=== PATIENT | female | born 1935 | race Caucasian/White ===

== ENCOUNTER 2021-07-27 12:24 | Inpatient (IN) | payer OTHER, MEDICAID, SELFPAY ==
[~2021-07-27] VITALS: Ht 165.1 cm; Wt 69.9 kg
[2021-07-27 13:27] VITALS: BP 118/50
--- NOTE | 2021-07-27 13:30 | NUR ---
PT BIBA TAKEN TO ER BED 9.
--- NOTE | 2021-07-27 13:39 | NUR ---
86 Y/O FEMALE BIBA FROM [facility] C/O BILATERAL LEG PAIN. PER EMT DR IN [facility] WANTS AN EVALUATION TO RULE OUT CELLULITIS. PT IS A&OX0, GCS 14. REDNESS NOTED TO BOTH INNER THIGHS. PMH: RIGHT CVA, HTN, HLD, R LEG DVT, BULLOUS PEMPHIGOID( SEE CHART FOR EXTENSIVE) NKA
--- NOTE | 2021-07-27 14:12 | NUR ---
DR. WAKEFIELD AT PT BEDSIDE FOR FURTHER EVALUATION.
[2021-07-27 14:38] LABS: BASOPHILS % (AUTO) 0.4 % (0.0-2.0); EOSINOPHILS # (AUTO) 0.1 K/uL (0-0.4); EOSINOPHILS % (AUTO) 0.8 % (0.0-4.0); HEMATOCRIT 45.2 % (36-48); LYMPHOCYTES # (AUTO) 1.5 K/uL (2.5-16.5); MEAN CORPUSCULAR HEMOGLOBIN 30 pg (27-31); MEAN CORPUSCULAR HGB CONC 33 g/dL (33-37); MEAN CORPUSCULAR VOLUME 89.8 fL (80-94); MONOCYTES # (AUTO) 0.2 K/uL (0.8-1.0); NEUTROPHILS # (AUTO) 10.5 K/uL (1.8-7.7); NEUTROPHILS % (AUTO) 84.8 % (42.2-75.2); PLATELET COUNT (AUTO) 373 K/uL (140-450); RED BLOOD CELL COUNT(AUTO) 5.03 MIL/uL (4.20-5.40); RED CELL DISTRIBUTION WIDTH 14.8 % (11.6-13.7); WHITE BLOOD COUNT (AUTO) 12.4 K/uL (4.8-10.8)
[2021-07-27 15:00] LABS: ALBUMIN 3.9 g/dL (3.4-5.0); ANION GAP 11.9 (8-16); ASPARTATE AMINOTRANSFERASE 23 U/L (15-37); CARBON DIOXIDE 28.2 mmol/L (21-32); CHLORIDE 107 mmol/L (98-107); CREATININE 0.7 mg/dL (0.6-1.3); GLUCOSE 127 mg/dL (74-106); POTASSIUM 4.1 mmol/L (3.5-5.1); SODIUM SERUM 143 mmol/L (136-145); TOTAL BILIRUBIN 0.4 mg/dL (0.0-1.0); UREA NITROGEN, BLOOD 17 mg/dL (7-18)
[2021-07-27] MEDS ORDERED: KETOROLAC 30 MG/ML VIAL IVP ONE (15:00)
[2021-07-27] MEDS ORDERED: diphenhydrAMINE 50 MG/ML VIAL IVP ONE (15:00)
--- NOTE | 2021-07-27 15:30 | NUR ---
PT AWAKE, ALERT, VSS, WILL CONTINUE TO MONITOR.
[2021-07-27] MEDS ORDERED: ceFAZolin 1,000 MG VIAL ONE (16:04)
[2021-07-27 16:40] LABS: APPEARANCE,URINE CLEAR (CLEAR); BILIRUBIN,URINE NEGATIVE (NEGATIVE); BLOOD, URINE TRACE-I (NEGATIVE); LEUKOCYTE ESTERASE ,URINE NEGATIVE (NEGATIVE); NITRITE, URINE NEGATIVE (NEGATIVE); PH,URINE 6.5 (5.0-9.0); UGLUCOSE NEGATIVE (NEGATIVE)
[2021-07-27 16:50] LABS: COLOR,URINE STRAW (YELLOW)
[2021-07-27 16:51] LABS: RBC,URINE NONE SEEN /HPF (0-5); WBC,URINE NONE SEEN /HPF (0-5)
--- NOTE | 2021-07-27 17:27 | NUR ---
PT SLEEPING, VISIBLE EQUAL RISE AND FALL OF CHEST, VSS, WILL CONTINUE TO MONITOR.
[2021-07-27] MEDS: NACL 0.9% 1,000 ML IV SCH (18:50)
[2021-07-27] MEDS ORDERED: PRED10TA5 PO (19:05)
[2021-07-27] MEDS ORDERED: AMLO10TA PO (19:05)
[2021-07-27] MEDS ORDERED: ATOR40TA PO (19:05)
[2021-07-27] MEDS ORDERED: CRAN400C2 PO (19:05)
[2021-07-27] MEDS ORDERED: DOCU-299 PO (19:05)
[2021-07-27] MEDS ORDERED: LACT-103 PO (19:05)
[2021-07-27] MEDS ORDERED: FURO-572 PO (19:05)
[2021-07-27] MEDS ORDERED: RIVA20TA PO (19:05)
--- NOTE | 2021-07-27 19:14 | NUR ---
GAVE REPORT TO JAKE MIR. TRANSFER OF CARE AT THIS TIME.
--- NOTE | 2021-07-27 19:15 | NUR ---
RN ASSUMED CARE OF PT.
--- NOTE | 2021-07-27 19:20 | NUR ---
RN TO PT ROOM. PT LYING IN BED WITH EYES OPEN. AOX3. DENIES ANY NEEDS AT THIS TIME, WILL CONTINUE TO MONITOR PT.
[2021-07-27] MEDS ORDERED: cefTRIAXone 1,000 MG VIAL ONE (20:19)
--- NOTE | 2021-07-27 20:37 | NUR ---
RN TO PT ROOM TO MEDICATE PT PER MD ORDERS. PT VERY COMBATIVE TOWARDS RN, HITTING RN WHEN RN TRIES TO MEDICATE PT. PT CALLS IN HELP, JAKE AU TO TALK TO PT. PT COMBATIVE TOWARDS JAKE AU. PT SCREAMING INCOMPREHENSIBLE WORDS. RN, ANGELY RN, OR EMT UNABLE TO COMPREHEND WHAT PT IS SAYING. MD NOTIFIED.
--- NOTE | 2021-07-27 21:50 | NUR ---
RN SPOKE TO DAUGHTER [phone] ABOUT MEDICAL PLAN FOR PT. DAUGHTER ASKED RN TO CALL HER BACK WHEN PT IS AWAKE.
--- NOTE | 2021-07-27 22:23 | NUR ---
DAUGHTER AT BEDSIDE
--- NOTE | 2021-07-27 23:00 | NUR ---
RN TO BEDSIDE. PT SELF DC IV. RN UNSUCCESSFUL AT REATTEMPT TO INSERT IV ACCESS. EVANS AU TO BEDSIDE TO INSERT PERIPHERAL IV.
--- NOTE | 2021-07-27 23:22 | NUR ---
EVANS AU UNSUCCESSFUL WITH IV START. NOTIFIED.
--- NOTE | 2021-07-28 01:20 | NUR ---
RN TO PT ROOM. PT LYING IN BED WITH EYES CLOSED, APPEARS TO BE ASLEEP. RN COMPLAINING OF PAIN AND ITCHING. RN NOTIFIED MD OF PT COMPLAINTS. NO NEW ORDERS RECIEVED AT THIS TIME.
[2021-07-28] MEDS: NACL 0.9% 1,000 ML IV SCH ×3 (01:34→16:38)
--- NOTE | 2021-07-28 03:30 | NUR ---
RN TO PT ROOM. PT LYING IN BED WITH EYES CLOSED. APPEARS TO BE ASLEEP. EQUAL RISE AND FALL OF CHEST. NO ACUTE DISTRESS AT THIS TIME. WILL CONTINUE TO MONITOR PT.
--- NOTE | 2021-07-28 04:36 | NUR ---
RN TO PT ROOM. RN AND EMT PROVIDED INCONTINENCE CARE. PT URINE. CLEAN LINENS PROVIDED. WARM BLANKETS PROVIDED FOR COMFORT. RN AND EMT REPOSITIONED PT FOR COMFORT. PT CRYING DUE TO RASH IRRITATING AND PAIN. RN ALERTED MD. NO NEW ORDERS RECIEVED AT THIS TIME. WILL CONTINUE TO MONITOR PT.
[2021-07-28] MEDS ORDERED: diphenhydrAMINE 50 MG/ML VIAL IVP ONE (04:55)
--- NOTE | 2021-07-28 05:02 | NUR ---
PT MEDICATED PER MD ORDERS. PLEASE SEE EMAR.
--- NOTE | 2021-07-28 05:49 | NUR ---
PT LYING IN BED WITH EYES CLOSED, APPEARS TO BE SLEEPING AND RELAXED. EQUAL RISE AND FALL OF THE CHEST. NO ACUTE DISTRESS NOTED AT THIS TIME. WILL CONTINUE TO MONITOR PT.
--- NOTE | 2021-07-28 07:11 | NUR ---
REPORT GIVEN TO JAKE SAMUEL TO ASSUME CARE OF PT.
--- NOTE | 2021-07-28 07:11 | NUR ---
REPORT RECEIVED FROM ADEOLA JOSEPH FOR CONTINUITY OF CARE. PT AWAKE, A&OX0. ON ROOM AIR. IV SITE LT AC 20G, INTACT, PATENT, GOOD BLOOD RETURN, SALINE LOCKED. SKIN INTACT, WARM AND DRY. SAFETY PRECAUTIONS IN PLACE.
--- NOTE | 2021-07-28 07:18 | NUR ---
LAB AT BEDSIDE
[2021-07-28 07:54] LABS: BASOPHILS # (AUTO) 0.1 K/uL (0.00-0.22); BASOPHILS % (AUTO) 0.6 % (0.0-2.0); EOSINOPHILS # (AUTO) 0.8 K/uL (0-0.4); EOSINOPHILS % (AUTO) 4.7 % (0.0-4.0); HEMATOCRIT 45.7 % (36-48); HEMOGLOBIN 15.2 g/dL (12.0-16.0); LYMPHOCYTES # (AUTO) 5.1 K/uL (2.5-16.5); LYMPHOCYTES % (AUTO) 28.6 % (20.5-51.1); MEAN CORPUSCULAR HEMOGLOBIN 30 pg (27-31); MEAN CORPUSCULAR HGB CONC 33 g/dL (33-37); MEAN CORPUSCULAR VOLUME 90.7 fL (80-94); MONOCYTES # (AUTO) 1.3 K/uL (0.8-1.0); MONOCYTES % (AUTO) 7.2 % (1.7-9.3); NEUTROPHILS # (AUTO) 10.6 K/uL (1.8-7.7); NEUTROPHILS % (AUTO) 58.9 % (42.2-75.2); PLATELET COUNT (AUTO) 334 K/uL (140-450); RED BLOOD CELL COUNT(AUTO) 5.04 MIL/uL (4.20-5.40); RED CELL DISTRIBUTION WIDTH 14.6 % (11.6-13.7)
[2021-07-28 08:05] LABS: ANION GAP 15.4 (8-16); CARBON DIOXIDE 24.2 mmol/L (21-32); CHLORIDE 109 mmol/L (98-107); CREATININE 0.7 mg/dL (0.6-1.3); GLUCOSE 96 mg/dL (74-106); POTASSIUM 3.6 mmol/L (3.5-5.1); SODIUM SERUM 145 mmol/L (136-145); UREA NITROGEN, BLOOD 13 mg/dL (7-18)
[2021-07-28] MEDS ORDERED: ZOLPIDEM 5 MG TAB PO PRN (09:10)
[2021-07-28] MEDS ORDERED: ONDANSETRON 4 MG/2 ML VIAL IM/IVP PRN (09:10)
[2021-07-28] MEDS ORDERED: MORPHINE SULFATE 2 MG/ML SYR IVP PRN (09:10)
[2021-07-28] MEDS ORDERED: MAG SULF 2000 MG/WATER PREMIX 50 ML IV PRN (09:10)
[2021-07-28] MEDS ORDERED: POTASSIUM CHLORIDE 10 MEQ TABER PO PRN (09:10)
[2021-07-28] MEDS ORDERED: RIVAROXABAN 10 MG TAB PO PRN (09:10)
[2021-07-28] MEDS ORDERED: DOCUSATE SODIUM 100 MG GELCAP PO PRN ×2 (09:10)
[2021-07-28] MEDS ORDERED: ACETAMINOPHEN 325 MG TAB PO PRN (09:10)
--- NOTE | 2021-07-28 09:39 | NUR ---
PT'S DAUGTHER AT BEDSIDE
[2021-07-28] MEDS: LORazepam 2 MG/ML VIAL IM/IVP PRN ×3 (09:57→22:02)
[2021-07-28 10:02] LABS: PROTHROMBIN TIME 10.3 secs (10.8-13.4)
--- NOTE | 2021-07-28 10:04 | NUR ---
ULTRASOUND AT BEDSIDE
[2021-07-28 10:09] LABS: CHOL/HDL RATIO 2.4 (1-4.5); THYROID STIMULATING HORMONE 6.1 uIU/mL (0.34-3.74)
--- NOTE | 2021-07-28 10:25 | NUR ---
PATIENT HAS BEEN SCREENED AND CATEGORIZED MODERATE NUTRITION RISK. PATIENT WILL BE SEEN WITHIN 3-5 DAYS OF ADMISSION. 07/28/21 08/01/[address]
[2021-07-28] MEDS: HYDROcodone/APAP 5/325 MG 1 TAB TAB PO PRN (10:42)
--- NOTE | 2021-07-28 12:06 | NUR ---
DR PANIAGUA AT BEDSIDE EXAMINING PT
--- NOTE | 2021-07-28 13:16 | NUR ---
CALLED [facility], STATED THEY DO NOT HAVE COPY OF ECHO. CALLED PT[facility]S [facility]. STATED ECHO DONE THIS YEAR AND DOES NOT REMEMBER IF IT WAS DONE AT [place] OR [place]
--- NOTE | 2021-07-28 15:30 | NUR ---
PT ATTEMPTING TO GET OUT OF BED AND RESTLESS. PT REDIRECTED. UNABLE TO COMPREHEND. PT A&OX0. ATIVAN PRN GIVEN.
--- NOTE | 2021-07-28 16:20 | NUR ---
RECEIVED CALL FROM PT[facility]S [facility]. UPDATED ON PT STATUS. ALL QUESTIONS AND CONCERNS ANSWERED AT THIS TIME.
--- NOTE | 2021-07-28 17:20 | NUR ---
ULTRASOUND AT BEDSIDE
--- NOTE | 2021-07-28 19:15 | NUR ---
RECIEVED REPORT FROM JAKE SAMUEL TO ASSUME CARE OF PT.
--- NOTE | 2021-07-28 19:20 | NUR ---
PT LYING IN BED WITH EYES CLOSED, APPEARS TO BE ASLEEP. PT EASILY ARROUSABLE, RN AND EMT REPOSITIONED PT FOR COMFORT. ALL VITAL SIGNS ARE STABLE AT THIS TIME. EQUAL RISE AND FALL OF THE CHEST. NO ACUTE DISTRESS NOTED. WILL CONTINUE TO MONITOR PT.
--- NOTE | 2021-07-28 19:22 | NUR ---
Pt report given to ADEOLA JOSEPH. Transfer of care at this time.
--- NOTE | 2021-07-28 20:00 | NUR ---
Soft wrist Resraints in place per MD orders with quick-release ties to bed frame. Pt under observation. Distal circulation intact, pt provided opportunity to perform ROM exercises, pt denies discomfort. All safety measures checked per facility protocol.
--- NOTE | 2021-07-28 21:05 | NUR ---
Patient will be admitted to care of [facility]. Admited to [facility]. Will go to room 110A. Belongings list completed. Report to JAKE MERIDA.
--- NOTE | 2021-07-28 21:15 | NUR ---
PT TRANSPORTED TO FLOOR VIA GURNEY BY [facility]. VS ARE STABLE AT TRANSFER. NO ACUTE DISTRESS NOTED.
--- NOTE | 2021-07-28 21:15 | NUR ---
REPORT CALLED TO JAKE MERIDA. PT TO ROOM 110A, [facility].
[2021-07-28] MEDS: ATORVASTATIN 20 MG TAB PO SCH (21:53)
[2021-07-28] MEDS: RIVAROXABAN 10 MG TAB PO SCH (21:53)
[2021-07-28 22:30] VITALS: BP 127/75
--- NOTE | 2021-07-28 22:30 | NUR ---
ADMITTED FROM ED VIA [facility] WITH CHIEF COMPLAINT OF RIGHT LEG CELLULITIS. PATIENT IS COMBATIVE. SOFT MITTEN RESTRAINTS PRESENT ON BOTH ARMS. ACTIVE ORDER IS PRESENT. A&OX0. INDONESIAN SPEAKING ONLY. PATIENT IS AROUSABLE TO TOUCH. VITAL SIGNS TAKEN. RESPIRATIONS EVEN AND UNLABORED. ON ROOM AIR WITH NO APPARENT S/SX OF ACUTE DISTRESS. HEAD TO TOE ASSESSMENT DONE WITH JAKE CARRASQUILLO. PHOTOS TAKEN AND DOCUMENTED ON RIGHT HIP, LEFT AND RIGHT THIGHS, AND RLE. PATIENT IS ORIENTED TO CALL LIGHT, BED, PHONE, TELEVISION, BATHROOM, VISITING HOURS, PROCEDURES. ID BRACELET IS ON. BELONGINGS LIST CHECKED. PROCESSING PLAN INITIATED BY RN AND WHITE COMMUNICATION BOARD UPDATED. ALL SAFETY MEASURES IN PLACE. BED ON LOW/LOCKED POSITION. CALL LIGHT WITHIN REACH. WILL CONTINUE TO MONITOR.
--- NOTE | 2021-07-28 22:31 | NUR ---
Patient's Plan of Care was discussed and reviewed with NADINE: MAGNOLIA
--- NOTE | 2021-07-29 00:30 | NUR ---
CHECKED PATIENT. STABLE AND ASLEEP. CHEST IS RISING AND FALLING SYMMETRICALLY. RESPIRATIONS EVEN AND UNLABORED WITH NO APPARENT S/SX OF ACUTE DISTRESS. WHITE COMMUNICATION BOARD UPDATED. ALL SAFETY MEASURES IN PLACE. CALL LIGHT WITHIN REACH. WILL CONTINUE TO MONITOR.
[2021-07-29] MEDS: NACL 0.9% 1,000 ML IV SCH ×3 (00:34→17:14)
--- NOTE | 2021-07-29 02:30 | NUR ---
PATIENT PULLED OUT IV. ENDORSED TO JKAE CARRASQUILLO TO HELP ESTABLISH A NEW LINE. FIXED PATIENT IN BED. BILATERAL SOFT WRIST RESTRAINTS IN PLACE. FLACC=0. RESPIRATIONS EVEN AND UNLABORED WITH NO APPARENT S/SX OF ACUTE DISTRESS. WHITE COMMUNICATION BOARD UPDATED. ALL SAFETY MEASURES IN PLACE. CALL LIGHT WITHIN REACH. WILL CONTINUE TO MONITOR.
[2021-07-29 04:00] VITALS: BP 124/77
[2021-07-29] MEDS: LORazepam 2 MG/ML VIAL IM/IVP PRN (04:07)
--- NOTE | 2021-07-29 04:30 | NUR ---
ROUNDED ON PATIENT. STABLE AND ASLEEP. CHEST IS RISING AND FALLING SYMMETRICALLY. RESPIRATIONS EVEN AND UNLABORED WITH NO APPARENT S/SX OF ACUTE DISTRESS. WHITE COMMUNICATION BOARD UPDATED. ALL SAFETY MEASURES IN PLACE. CALL LIGHT WITHIN REACH. WILL CONTINUE TO MONITOR.
--- NOTE | 2021-07-29 07:05 | NUR ---
ENDORSED PATIENT TO MORNING SHIFT NURSE FOR CONTINUITY OF CARE. PATIENT IS STABLE.
--- NOTE | 2021-07-29 07:15 | NUR ---
RECEIVED REPORT FROM CNC MILL SET UP OPERATOR NURSE FOR CONTINUITY OF CARE. PATIENT RESTING IN BED. NO S/S OF DISTRESS. ALL SAFETY PRECAUTIONS IN PLACE.
[2021-07-29 07:22] LABS: BASOPHILS # (AUTO) 0.1 K/uL (0.00-0.22); BASOPHILS % (AUTO) 0.6 % (0.0-2.0); EOSINOPHILS # (AUTO) 0.8 K/uL (0-0.4); EOSINOPHILS % (AUTO) 5.3 % (0.0-4.0); HEMATOCRIT 39.3 % (36-48); HEMOGLOBIN 12.9 g/dL (12.0-16.0); LYMPHOCYTES # (AUTO) 3.5 K/uL (2.5-16.5); LYMPHOCYTES % (AUTO) 21.7 % (20.5-51.1); MEAN CORPUSCULAR HEMOGLOBIN 30 pg (27-31); MEAN CORPUSCULAR HGB CONC 33 g/dL (33-37); MEAN CORPUSCULAR VOLUME 89.9 fL (80-94); MONOCYTES # (AUTO) 1.2 K/uL (0.8-1.0); MONOCYTES % (AUTO) 7.3 % (1.7-9.3); NEUTROPHILS # (AUTO) 10.4 K/uL (1.8-7.7); NEUTROPHILS % (AUTO) 65.1 % (42.2-75.2); PLATELET COUNT (AUTO) 322 K/uL (140-450); RED BLOOD CELL COUNT(AUTO) 4.37 MIL/uL (4.20-5.40); RED CELL DISTRIBUTION WIDTH 14.7 % (11.6-13.7)
[2021-07-29 07:32] LABS: ANION GAP 14.2 (8-16); CARBON DIOXIDE 23.1 mmol/L (21-32); CHLORIDE 110 mmol/L (98-107); CREATININE 0.6 mg/dL (0.6-1.3); GLUCOSE 94 mg/dL (74-106); POTASSIUM 3.3 mmol/L (3.5-5.1); SODIUM SERUM 144 mmol/L (136-145); UREA NITROGEN, BLOOD 17 mg/dL (7-18)
[2021-07-29 07:53] LABS: PHOSPHORUS 3.5 mg/dL (2.5-4.9)
[2021-07-29 08:00] VITALS: BP 121/53
[2021-07-29] MEDS ORDERED: NON-FORMULARY ITEM (Lactulose 30 ML) PO SCH (09:00)
[2021-07-29 09:06] LABS: T4 (THYROXINE) 9.7 ug/dL (4.5-12.0)
[2021-07-29] MEDS: PANTOPRAZOLE 40 MG TABEC PO SCH (10:51)
[2021-07-29] MEDS: LACTULOSE 20 GM/30 ML UDC PO SCH (10:51)
[2021-07-29] MEDS: predniSONE 10 MG TAB PO SCH (10:52)
[2021-07-29] MEDS: FUROSEMIDE 20 MG TAB PO SCH (10:52)
[2021-07-29] MEDS: amLODIPine 5 MG TAB PO SCH (10:52)
--- NOTE | 2021-07-29 11:00 | NUR ---
PATIENT'S DAUGHTER AT BEDSIDE WITH PATIENT. PATIENT AWAKE AND ALERT. ALL SAFETY PRECAUTIONS IN PLACE.
[2021-07-29] MEDS ORDERED: Z-GUARD PASTE TP SCH (11:50)
--- NOTE | 2021-07-29 14:00 | NUR ---
PATIENT'S DAUGHTER AT BEDSIDE. DAUGHTER HELPED PATIENT EAT. PATIENT ATE WITH ASSISTANCE OF FOOD BEING CUT UP FOR HER.
[2021-07-29 16:00] VITALS: BP 141/70
--- NOTE | 2021-07-29 19:53 | NUR ---
ENDORSED PATIENT TO GUIDE RN FOR CONTINUITY OF CARE. PATIENT STABLE.
--- NOTE | 2021-07-29 19:54 | NUR ---
RECEIVED REPORT FROM AM NURSE. PATIENT IS AWAKE RESTING IN BED. NO ACUTE DISTRESS NOTED. RESPIRATION EVEN UNLABORED. SAFETY MEASURES IN PLACE. CALL LIGHT WITHIN REACH. NO COMPLAINTS OF PAIN AT THIS TIME. WILL CONTINUE TO MONITOR.
[2021-07-29] MEDS: RIVAROXABAN 10 MG TAB PO SCH (21:13)
[2021-07-29] MEDS: ATORVASTATIN 20 MG TAB PO SCH (21:14)
--- NOTE | 2021-07-29 21:14 | NUR ---
ADMINISTERED ALL 2100 MEDS ORDERED BY .
[2021-07-29] MEDS ORDERED: VANCOMYCIN PER PHARMACY MC PRN (21:35)
[2021-07-29] MEDS ORDERED: VANCOMYCIN 1GM/DEXT 5% PREMIX 200 ML IV SCH (21:45)
[2021-07-29] MEDS ORDERED: VANCOMYCIN 1,000 MG VIAL ONE (23:43)
[2021-07-30] MEDS: NACL 0.9% 1,000 ML IV SCH ×2 (01:34→12:00)
[2021-07-30] MEDS: LORazepam 2 MG/ML VIAL IM/IVP PRN (02:45)
[2021-07-30 04:00] VITALS: BP 152/83
[2021-07-30 08:00] VITALS: BP 154/61
--- NOTE | 2021-07-30 08:00 | NUR ---
RECEIVED REPORT FROM PROPOSAL ANALYST FOR CONTINUITY OF CARE. PATIENT AWAKE, CONFUSED. NOT IN ANY DISTRESS NOTED. ON BILATERAL RESTRAINT INTACT. WITH IVF ON GOING AND INFUSING WELL. INITIAL ASSESSMENT INITIATED. NEEDS ATTENDED, WILL CONTINUE TO MONITOR.
[2021-07-30 08:41] LABS: BASOPHILS # (AUTO) 0.1 K/uL (0.00-0.22); BASOPHILS % (AUTO) 0.4 % (0.0-2.0); EOSINOPHILS # (AUTO) 0.8 K/uL (0-0.4); EOSINOPHILS % (AUTO) 6.5 % (0.0-4.0); HEMATOCRIT 40.9 % (36-48); HEMOGLOBIN 13.4 g/dL (12.0-16.0); LYMPHOCYTES % (AUTO) 23.5 % (20.5-51.1); MEAN CORPUSCULAR HEMOGLOBIN 30 pg (27-31); MEAN CORPUSCULAR HGB CONC 33 g/dL (33-37); MEAN CORPUSCULAR VOLUME 90.8 fL (80-94); MONOCYTES # (AUTO) 0.9 K/uL (0.8-1.0); MONOCYTES % (AUTO) 6.7 % (1.7-9.3); NEUTROPHILS % (AUTO) 62.9 % (42.2-75.2); PLATELET COUNT (AUTO) 329 K/uL (140-450); RED BLOOD CELL COUNT(AUTO) 4.51 MIL/uL (4.20-5.40); RED CELL DISTRIBUTION WIDTH 14.7 % (11.6-13.7); WHITE BLOOD COUNT (AUTO) 12.7 K/uL (4.8-10.8)
[2021-07-30 08:56] LABS: ANION GAP 11.8 (8-16); CARBON DIOXIDE 24.6 mmol/L (21-32); CHLORIDE 111 mmol/L (98-107); CREATININE 0.6 mg/dL (0.6-1.3); GLUCOSE 107 mg/dL (74-106); POTASSIUM 3.4 mmol/L (3.5-5.1); SODIUM SERUM 144 mmol/L (136-145); UREA NITROGEN, BLOOD 11 mg/dL (7-18)
--- NOTE | 2021-07-30 09:00 | NUR ---
DUE MEDICATIONS GIVEN AND TOLERATED WELL. PATIENT IS A FEEDER.
[2021-07-30 09:08] LABS: MAGNESIUM 1.9 mg/dL (1.8-2.4)
[2021-07-30] MEDS: LACTULOSE 20 GM/30 ML UDC PO SCH (09:27)
[2021-07-30] MEDS: amLODIPine 5 MG TAB PO SCH (09:28)
[2021-07-30] MEDS: predniSONE 10 MG TAB PO SCH (09:28)
[2021-07-30] MEDS: PANTOPRAZOLE 40 MG TABEC PO SCH (09:28)
[2021-07-30 10:02] LABS: PHOSPHORUS 3.2 mg/dL (2.5-4.9)
--- NOTE | 2021-07-30 12:00 | NUR ---
PATIENT RESTING IN BED, NOT IN ANY DISTRESS NOTED.
[2021-07-30 16:00] VITALS: BP 137/67
--- NOTE | 2021-07-30 18:00 | NUR ---
DAUGHTER HERE TRY TO FEED PATIENT AND TOLERATING FOOD WELL. DISCUSSED THE PLAN OF CARE TO THE DAUGHTER.
--- NOTE | 2021-07-30 19:00 | NUR ---
REPORT GIVEN TO THE ASSEMBLIES AND INSTALLATIONS INSPECTOR FOR CONTINUITY OF CARE. PATIENT IN STABLE CONDITION.
--- NOTE | 2021-07-30 19:15 | NUR ---
RECEIVED BEDSIDE REPORT FROM DAY SHIFT NURSE. PATIENT IS AWAKE, RESPIRATION EVEN UNLABORED ON ROOM AIR. NO DISTRESS NOTED. SKIN IS WARM AND DRY. IV PATENT AND INTACT. PLAN OF CARE WAS DISCUSSED. ALL SAFETY MEASURES IN PLACE. BED IS AT LOW POSITION. CALL LIGHT WITHIN REACH. WILL CONTINUE TO MONITOR,
[2021-07-30] MEDS ORDERED: VANCOMYCIN 750 MG in DEXTROSE 5% 250 ML IV SCH (21:00)
[2021-07-30 21:08] LABS: PROTHROMBIN TIME 10.4 secs (10.8-13.4)
--- NOTE | 2021-07-30 22:00 | NUR ---
ALL SCHEDULED MEDS WERE GIVEN PER ORDER. WILL CONTINUE TO MONITOR
[2021-07-30] MEDS: ATORVASTATIN 20 MG TAB PO SCH (22:10)
[2021-07-30] MEDS: RIVAROXABAN 10 MG TAB PO SCH (22:12)
--- NOTE | 2021-07-30 23:00 | NUR ---
MADE ROUNDS, PATIENT ASLEEP. RESPIRATION EVEN UNLABORED ON ROOM AIR. NO DISTRESS NOTED. WILL CONTINUE TO MONITOR.
[2021-07-31] MEDS: LORazepam 2 MG/ML VIAL IM/IVP PRN (01:33)
[2021-07-31] MEDS: NACL 0.9% 1,000 ML IV SCH ×3 (01:33→11:04)
--- NOTE | 2021-07-31 01:33 | NUR ---
PATIENT IS RESTLESS AND AGITATED, PRN ATIVAN GIVEN PER ORDER. WILL CONTINUE TO MONITOR
--- NOTE | 2021-07-31 03:30 | NUR ---
MADE ROUNDS PATIENT SLEEPING RESPIRATION EVEN UNLABORED ON ROOM AIR. NO DISTRESS NOTED. WILL CONTINUE TO MONITOR.
--- NOTE | 2021-07-31 04:45 | NUR ---
AM CARE PROVIDED
--- NOTE | 2021-07-31 07:29 | NUR ---
ENDORSED PATIENT TO DAY SHIFT NURSE AT BEDSIDE FOR CONTINUITY OF CARE
[2021-07-31 08:00] VITALS: BP 151/78
--- NOTE | 2021-07-31 08:00 | NUR ---
RECEIVED REPORT FROM STEAM TUNNEL FEEDER FOR CONTINUITY OF CARE. PATIENT ALERT AWAKE ORIENTED X1. OFF RESTRAINT AND COMPLETED. BED ALARM ON. WITH IVF ON GOING AND INFUSING WELL. DENIES PAIN AT THIS TIME. COMPLAINED OF ITCHINESS, WILL PUT CREAM ORDER. REPOSITIONED NEEDED. NEEDS ATTENDED. WILL CONTINUE TO MONITOR.
[2021-07-31 08:04] LABS: BASOPHILS # (AUTO) 0.1 K/uL (0.00-0.22); BASOPHILS % (AUTO) 0.5 % (0.0-2.0); EOSINOPHILS # (AUTO) 1.5 K/uL (0-0.4); HEMATOCRIT 41.9 % (36-48); HEMOGLOBIN 13.8 g/dL (12.0-16.0); LYMPHOCYTES % (AUTO) 24.2 % (20.5-51.1); MEAN CORPUSCULAR HEMOGLOBIN 30 pg (27-31); MEAN CORPUSCULAR HGB CONC 33 g/dL (33-37); MEAN CORPUSCULAR VOLUME 91.7 fL (80-94); MONOCYTES % (AUTO) 6.3 % (1.7-9.3); NEUTROPHILS # (AUTO) 9.8 K/uL (1.8-7.7); PLATELET COUNT (AUTO) 288 K/uL (140-450); RED BLOOD CELL COUNT(AUTO) 4.57 MIL/uL (4.20-5.40); RED CELL DISTRIBUTION WIDTH 14.8 % (11.6-13.7); WHITE BLOOD COUNT (AUTO) 16.3 K/uL (4.8-10.8)
[2021-07-31 08:18] LABS: ANION GAP 12.5 (8-16); CARBON DIOXIDE 24.1 mmol/L (21-32); CHLORIDE 110 mmol/L (98-107); CREATININE 0.5 mg/dL (0.6-1.3); GLUCOSE 93 mg/dL (74-106); POTASSIUM 3.6 mmol/L (3.5-5.1); SODIUM SERUM 143 mmol/L (136-145); UREA NITROGEN, BLOOD 8 mg/dL (7-18)
[2021-07-31 08:47] LABS: MAGNESIUM 2.1 mg/dL (1.8-2.4); PHOSPHORUS 2.9 mg/dL (2.5-4.9)
[2021-07-31] MEDS: LACTULOSE 20 GM/30 ML UDC PO SCH (08:47)
[2021-07-31] MEDS: FUROSEMIDE 20 MG TAB PO SCH (08:48)
[2021-07-31] MEDS: PANTOPRAZOLE 40 MG TABEC PO SCH (08:48)
[2021-07-31] MEDS: amLODIPine 5 MG TAB PO SCH (08:48)
[2021-07-31] MEDS: predniSONE 10 MG TAB PO SCH (08:49)
--- NOTE | 2021-07-31 14:00 | NUR ---
SEEN BY DR. PANIAGUA AND ORDER TO SALINE LOCK PATIENT. PATIENT IS A FEEDER AND TOLERATED DIET WELL.
[2021-07-31 16:00] VITALS: BP 120/58
[2021-07-31] MEDS: VANCOMYCIN 1,000 MG in DEXTROSE 5% 250 ML IV SCH (16:19)
--- NOTE | 2021-07-31 16:45 | NUR ---
VANCO IV STARTED AND INFUSING WELL. WILL CONTINUE TO MONITOR.
--- NOTE | 2021-07-31 19:20 | NUR ---
RECEIVED REPORT FROM AM NURSE FOR CONTINUITY OF CARE. PT AWAKE LYING IN BED . ALL SAFETY MEASURES IN PLACE.
--- NOTE | 2021-07-31 21:20 | NUR ---
HS MEDS GIVEN ORDERED.SKIN REDDENED R SIDE, HIP , AND GROIN. RFA 22G SL IN PLACE AND PATENT. REPOSITIONED. ALERT TO NAME ONLY. ALL SAFETY MEASURES IN PLACE. CONTINUE TO MONITOR.
[2021-07-31] MEDS: ATORVASTATIN 20 MG TAB PO SCH (21:27)
[2021-07-31] MEDS: RIVAROXABAN 10 MG TAB PO SCH (21:29)
[2021-08-01] VITALS: BP 150/64
--- NOTE | 2021-08-01 | NUR ---
FREQ ROUNDS. RESTING RR EVEN AND UNLABORED. NAD. ALL SAFETY MEASURES IN PLACE. CONTINUE TO MONITOR.
--- NOTE | 2021-08-01 03:00 | NUR ---
FREQ ROUNDS.PT SLEEPING RR EVEN AND UNLABORED. REPOSITIONED TO OFFSET PRESSURE POINTS. R SIDE, RUOSE ,HIP ,AND GROIN REMAINS REDDENED WITH CELLULITIC ULCERS. ALL SAFETY MEASURES IN PLACE. CONTINUE TO OBSERVE.
--- NOTE | 2021-08-01 06:45 | NUR ---
FREQ ROUNDS. PT SLEEPING RR EVEN AND UNLABORED. NAD. ALL SAFETY MEASURES IN PLACE. CONTINUE TO OBSERVE.
--- NOTE | 2021-08-01 07:15 | NUR ---
ENDORSED REPORT TO AM NURSE FOR CONTINUITY OF CARE.
--- NOTE | 2021-08-01 07:20 | NUR ---
RECEIVED REPORT FROM COMPUTER REPAIR TECHNICIAN NURSE FOR CONTINUITY OF CARE. PT ON STABLE CONDITION. IV SITE ON RIGHT FORE ARM JASON 22. NO S/S OF INFECTION.
[2021-08-01 07:41] LABS: MAGNESIUM 1.9 mg/dL (1.8-2.4); PHOSPHORUS 3.6 mg/dL (2.5-4.9)
[2021-08-01 07:43] LABS: ANION GAP 10.3 (8-16); BASOPHILS # (AUTO) 0.1 K/uL (0.00-0.22); BASOPHILS % (AUTO) 0.4 % (0.0-2.0); CARBON DIOXIDE 28.6 mmol/L (21-32); CHLORIDE 106 mmol/L (98-107); CREATININE 0.7 mg/dL (0.6-1.3); EOSINOPHILS % (AUTO) 7.1 % (0.0-4.0); GLUCOSE 106 mg/dL (74-106); HEMATOCRIT 42.5 % (36-48); HEMOGLOBIN 14.3 g/dL (12.0-16.0); LYMPHOCYTES # (AUTO) 3.3 K/uL (2.5-16.5); LYMPHOCYTES % (AUTO) 23.3 % (20.5-51.1); MEAN CORPUSCULAR HEMOGLOBIN 30 pg (27-31); MEAN CORPUSCULAR HGB CONC 34 g/dL (33-37); MONOCYTES # (AUTO) 1.1 K/uL (0.8-1.0); MONOCYTES % (AUTO) 7.7 % (1.7-9.3); NEUTROPHILS # (AUTO) 8.7 K/uL (1.8-7.7); NEUTROPHILS % (AUTO) 61.5 % (42.2-75.2); PLATELET COUNT (AUTO) 296 K/uL (140-450); RED BLOOD CELL COUNT(AUTO) 4.77 MIL/uL (4.20-5.40); SODIUM SERUM 142 mmol/L (136-145); UREA NITROGEN, BLOOD 14 mg/dL (7-18); WHITE BLOOD COUNT (AUTO) 14.2 K/uL (4.8-10.8)
[2021-08-01 08:00] VITALS: BP 133/52
[2021-08-01 08:34] LABS: POTASSIUM 2.9 mmol/L (3.5-5.1)
--- NOTE | 2021-08-01 08:36 | NUR ---
RECEIVED CRITICAL LABS FOR POTASSIUM OF 2.9 DOCTOR MADE AWARE.
[2021-08-01] MEDS: LACTULOSE 20 GM/30 ML UDC PO SCH (09:03)
[2021-08-01] MEDS: amLODIPine 5 MG TAB PO SCH (09:04)
[2021-08-01] MEDS: predniSONE 10 MG TAB PO SCH (09:04)
[2021-08-01] MEDS: PANTOPRAZOLE 40 MG TABEC PO SCH (09:04)
--- NOTE | 2021-08-01 09:15 | NUR ---
GIVEN ALL DUE MEDICATION TOLERATED WELL.
[2021-08-01] MEDS ORDERED: IV zosyn IV (10:35)
[2021-08-01] MEDS ORDERED: POTA10TA70 PO (10:36)
[2021-08-01] MEDS: KCL 20 MEQ/WATER INJ PREMIX 100 ML IV SCH ×2 (10:57→13:00)
--- NOTE | 2021-08-01 11:03 | NUR ---
PT HAS NEW ORDER FOR POTASSIUM VIA TANK WORKER GIVING AT THIS TIME.
--- NOTE | 2021-08-01 11:15 | NUR ---
WOUND CARE EVALUATION NOTE: SKIN ASSESSMENT DONE WITH CELLULITIS TO BOTH INNER THIGHS, SEEN BY ID WITH DX OF BULLOUS PEMPHIGOID. PT. ALSO WITH GENERNAL SKIN RASHES AND ITCHINESS. POC DISCUSSED WITH DR. URI WATSON. POC DISCUSSED WITH PRIMARY NURSE. RECOMMENDATIONS: -CLEANSE MULTIPLE BLISTERING SKIN TO TRUNK OF BODY AND LIMBS WITH NS, PAT DRY, APPLY ADAPTIC DRESSING AND COVER WITH DRY DRESSING QD AND PRN IF SOILING -APPLY TRIAMCINOLONE CREAM TO TRUNK OF BODY AND LIMBS RASHES,ITCHY SKIN TID -TURN AND REPOSITION PATIENT Q 2H -ASSESS AND MONITOR SKIN CONDITION DURING POSITION CHANGE -OFFLOAD BILATERAL HEELS BY PLACING PILLOWS UNDER CALVES AT ALL TIMES, UNLESS OTHERWISE CONTRAINDICATED -PRESSURE REDISTRIBUTION SURFACE AND OFFLOADING SACRALCOCCYX -KEEP SKIN CLEAN AND DRY AT ALL TIMES. PLEASE NOTIFIED WOUND CARE NURSE FOR ANY CHANGE OF SKIN CONDITION
--- NOTE | 2021-08-01 12:21 | NUR ---
UNABLE TO PUT IV LINE INFORM MD IF WE CAN CHANGE ORDER TO ORAL WAITING FOR RESPONSE.
--- NOTE | 2021-08-01 12:46 | NUR ---
ER NURSE OBTAINED IV LINE RESUME TO GIVE POTASSIUM VIA IV. TOLERATED WELL.
--- NOTE | 2021-08-01 13:17 | NUR ---
08/01/21 RD INITIAL ASSESSMENT COMPLETED PLEASE REFER TO NUTRITION ASSESSMENT UNDER CARE ACTIVITY FOR ESTIMATED NUTRITIONAL NEEDS. 1. CONTINUE CARDIAC DIET TOLERATED 2. PROVIDE ENSURE BID PER RD PROTOCOL 3. RD TO FOLLOW-UP 3-5 DAYS, MODERATE RISK REVIEWED BY MARIANNA CURRAN RD
[2021-08-01] MEDS: HYDROcodone/APAP 5/325 MG 1 TAB TAB PO PRN (14:07)
--- NOTE | 2021-08-01 14:15 | NUR ---
COMPLAIN OF PAIN MEDICATED ORDER WITH HELP.
[2021-08-01 16:00] VITALS: BP 137/61
[2021-08-01] MEDS: VANCOMYCIN 1,000 MG in DEXTROSE 5% 250 ML IV SCH (16:00)
--- NOTE | 2021-08-01 16:00 | NUR ---
VANCO NOT GIVEN DUE TO VANCO THROUGH NOT DRAWN. LABS CALLED THAT THEY ARE SO BEHIND SCHEDULE.
--- NOTE | 2021-08-01 16:06 | NUR ---
DC PLANNING: PT IS ACCEPTED AT [facility] CAN GO TO ROOM 14B NUMBER TO GIVE REPORT [phone] [facility] WILL ARRANGE TRANSPORT CLOTH HANDLER TIME 6 PM NOTIFIED LEXY JOSEPH. FLAVIA TO FOLLOW
--- NOTE | 2021-08-01 16:11 | NUR ---
GAVE REPORT TO LIDA JOSEPH FROM [facility] FOR CONTINUITY OF CARE.
[2021-08-01] MEDS ORDERED: TRIAMCINOLONE 0.5% CRM 15 GM TUBE TP SCH (17:00)
--- NOTE | 2021-08-01 17:30 | NUR ---
CALLED [facility] IF THEY CAN SAVE FOOD FOR DINNER FOR PT BUT NO ONE ANSWER CALLED 3X.
--- NOTE | 2021-08-01 18:00 | NUR ---
DINNER SERVE AND TRIED TO FEED HER BUT PT REFUSED TO EAT. INFORM DAUGHTER THAT PT DOESN'T WANT TO EAT.
--- NOTE | 2021-08-01 19:14 | NUR ---
ENDORSE TO DAY CARE PROVIDER NURSE FOR CONTINUITY OF CARE.
--- NOTE | 2021-08-01 19:15 | NUR ---
RECEIVED REPORT FROM MORNING SHIFT FOR CONTINUITY OF CARE. PATIENT IS PLANNED DISCHARGE AWAITING FOR TRANSPORT TO [facility]. PATIENT IS STABLE IN BED. A&OX0. PATIENT IS COLOMBIAN-SPEAKING ONLY BUT APHASIC. AROUSABLE TO TOUCH. FLACC=0. RESPIRATIONS EVEN AND UNLABORED WITH NO APPARENT S/SX OF ACUTE DISTRESS. IV SITE TO THE LEFT FOREARM 22G SL IS PATENT, INTACT AND ASYMPTOMATIC. PATIENT IS INCONTINENT AND UTILIZES PULL UPS. PATIENT IS NON-AMBULATORY. PLAN OF CARE DISCUSSED. ALL SAFETY MEASURES IN PLACE. CALL LIGHT WITHIN REACH. WILL CONTINUE TO MONITOR.
[2021-08-01] MEDS: RIVAROXABAN 10 MG TAB PO SCH (20:59)
[2021-08-01] MEDS: ATORVASTATIN 20 MG TAB PO SCH (20:59)
--- NOTE | 2021-08-01 21:05 | NUR ---
PICKED UP BY TRANSPORT. PATIENT IS STABLE.
[2021-08-02] MEDS ORDERED: NON ADHERENT DRESSING TP SCH (13:00)
== END 2021-08-01 21:00 | DRG 872 ==
LOC: MED 12:24 → MMU 18:59 → MTU 07-28 15:57
DX: A41.9 Sepsis, unspecified organism (principal); L03.115 Cellulitis of right lower limb; I69.351 Hemiplegia and hemiparesis following cerebral infarction affecting right dominant side; L12.0 Bullous pemphigoid; L03.116 Cellulitis of left lower limb; R47.01 Aphasia; E78.5 Hyperlipidemia, unspecified; I11.0 Hypertensive heart disease with heart failure; I50.9 Heart failure, unspecified; K59.00 Constipation, unspecified; R31.29 Other microscopic hematuria; E87.6 Hypokalemia; Z20.822 Contact with and (suspected) exposure to COVID-19; L01.03 Bullous impetigo; Z79.899 Other long term (current) drug therapy; Z90.710 Acquired absence of both cervix and uterus; Z63.5 Disruption of family by separation and divorce; Z78.1 Physical restraint status
CPT/HCPCS: 36415; 76770; 80048; 80053; 80202; 81001; 82150; 83036; 83605; 83690; 83735; 83880; 84100; 84134; 84436; 84443; 85025; 85610; 85730; 87040; 87081; 92610; 93925; 93971; 96365; 96367; 96375; 99285; J0690; J0696; J1200; J1885; J2060; J3370; J3480; J7060; J7512; Q0092; Q0163